=== PATIENT | male | born 1950 | race Caucasian/White ===

== ENCOUNTER 2018-07-16 17:54 | Inpatient (IN) | payer MEDICARE, SELFPAY ==
[2018-07-16 18:15] VITALS: BP 152/77; PULSE 67; RESP 16; TEMP 36.8; O2SAT 95; O2SAT 96; BMI 24.7
--- NOTE | 2018-07-16 19:35 | PCM.PN.HOSP ---
Subjective: Follow-up stroke This is a 5-year-old white male who was found with right-sided weakness and dysarthria. Taken to [facility] where he was found to have a left MCA stroke. He was found to have a PFO as well. Patient was having some right-sided weakness, right hemineglect and dysphagia. Symptoms are improving the patient still does have difficulty with expressive and receptive aphasia. He is never had a stroke before. Given that the time of onset of stroke and not be identified, patient did not receive TPA. Vitals/I&O's: Vital Signs Temp Pulse Resp BP Pulse Ox 36.8 C 67 16 152/77 H 96 07/16/18 18:15 07/16/18 18:15 07/16/18 18:15 07/16/18 18:15 07/16/18 18:15 Oxygen Delivery Method Room Air Weight: 73.8 kg Body Mass Index (BMI) 24.7 General: Alert, No apparent distress HEENT: Atraumatic, PERRLA, EOMI, Normocephalic Oral: Moist Mucosa, No Gingival or Mucosal Lesions/ Ulcerations Neck: No Nodes, Thyroid Normal Size and Texture Lungs: Clear to auscultation, Normal air movement, No rhonchi, No wheeze Cardiovascular: Regular rate, Regular Rhythm, Normal S1, Normal S2, No murmurs Abdomen: Bowel Sounds Present, Soft, Non Tender, Non-Distended, No Hepato-splenomegaly Extremities: No edema, No Calf Tenderness Skin: No rashes, No breakdown, - - Does have bruising on his right medial arm Musculoskeletal: No Tenderness to Palpation of Joints or Extremities, No Muscle Wasting Neurological: Cranial nerves II-XII grossly intact, Neuro grossly intact, Motor Exam 5/5 strength throughout - Though the patient did endorse that his right arm did feel slightly weak compared to his left but was able to hold up without drift for 10 seconds. Psych/Mental Status: Normal Affect Current Medications Acetaminophen (Tylenol) 650 mg PO Q8H PRN PRN PRN Reason: PAIN Aspirin (Aspirin, Baby) 81 mg PO DAILYCM [facility] Atorvastatin Calcium (Lipitor) 80 mg PO QHS [facility] Bisacodyl (Dulcolax) 10 mg RECTAL .PRN X 1 PRN PRN Reason: Constipation Calcium/Vitamin D (Os-Andrew 500mg + D) 1 tablet PO BIDCM [facility] Heparin Sodium (Porcine) (Heparin Na) 5,000 unit SC 0600,1800 [facility] Lisinopril (Zestril) 5 mg PO DAILY [facility] Magnesium Hydroxide (Milk Of Magnesia) 30 ml PO .PRN X 1 PRN PRN Reason: Constipation Senna/Docusate Sodium (Senokot-S, Paty-Colace) 2 tablet PO BID [facility] Assessment/Plan 1. Left MCA stroke: Been related with a PFO. Patient on aspirin and high intensity statin. Continue with physical, occupational and speech therapies. 2. Dysphagia: Status post stroke. Speech therapy. Modified diet. 3. Hypertension: Slightly high this time but would continue with lisinopril for now and make adjustments accordingly. 4. DVT prophylaxis with subcu heparin. Discussed with the patient's at bedside. Code Visit Inpatient E&M: 13806 Subs Hosp L2
--- NOTE | 2018-07-16 19:39 | PN_ITS ---
Subjective: Follow-up stroke This is a 5-year-old white male who was found with right-sided weakness and dysarthria. Taken to [facility] where he was found to have a left MCA stroke. He was found to have a PFO as well. Patient was having some right- sided weakness, right hemineglect and dysphagia. Symptoms are improving the patient still does have difficulty with expressive and receptive aphasia. He is never had a stroke before. Given that the time of onset of stroke and not be identified, patient did not receive TPA. Vitals/I&O's: Vital Signs Temp Pulse Resp BP Pulse Ox 36.8 C 67 16 152/77 H 96 07/16/18 18:15 07/16/18 18:15 07/16/18 18:15 07/16/18 18:15 07/16/18 18:15 Oxygen Delivery Method Room Air Weight: 73.8 kg Body Mass Index (BMI) 24.7 General: Alert, No apparent distress HEENT: Atraumatic, PERRLA, EOMI, Normocephalic Oral: Moist Mucosa, No Gingival or Mucosal Lesions/ Ulcerations Neck: No Nodes, Thyroid Normal Size and Texture Lungs: Clear to auscultation, Normal air movement, No rhonchi, No wheeze Cardiovascular: Regular rate, Regular Rhythm, Normal S1, Normal S2, No murmurs Abdomen: Bowel Sounds Present, Soft, Non Tender, Non-Distended, No Hepato- splenomegaly Extremities: No edema, No Calf Tenderness Skin: No rashes, No breakdown, - - Does have bruising on his right medial arm Musculoskeletal: No Tenderness to Palpation of Joints or Extremities, No Muscle Wasting Neurological: Cranial nerves II-XII grossly intact, Neuro grossly intact, Motor Exam 5/5 strength throughout - Though the patient did endorse that his right arm did feel slightly weak compared to his left but was able to hold up without drift for 10 seconds. Psych/Mental Status: Normal Affect Current Medications Acetaminophen (Tylenol) 650 mg PO Q8H PRN PRN PRN Reason: PAIN Aspirin (Aspirin, Baby) 81 mg PO DAILYCM [facility] Atorvastatin Calcium (Lipitor) 80 mg PO QHS [facility] Bisacodyl (Dulcolax) 10 mg RECTAL .PRN X 1 PRN PRN Reason: Constipation Calcium/Vitamin D (Os-Andrew 500mg + D) 1 tablet PO BIDCM [facility] Heparin Sodium (Porcine) (Heparin Na) 5,000 unit SC 0600,1800 [facility] Lisinopril (Zestril) 5 mg PO DAILY [facility] Magnesium Hydroxide (Milk Of Magnesia) 30 ml PO .PRN X 1 PRN PRN Reason: Constipation Senna/Docusate Sodium (Senokot-S, Paty-Colace) 2 tablet PO BID [facility] Assessment/Plan 1. Left MCA stroke: Been related with a PFO. Patient on aspirin and high intensity statin. Continue with physical, occupational and speech therapies. 2. Dysphagia: Status post stroke. Speech therapy. Modified diet. 3. Hypertension: Slightly high this time but would continue with lisinopril for now and make adjustments accordingly. 4. DVT prophylaxis with subcu heparin. Discussed with the patient's at bedside. Code Visit Inpatient E&M: 26977 Subs Hosp L2
[2018-07-16 21:47] VITALS: BP 148/85; PULSE 68; RESP 16; TEMP 37.4; O2SAT 95
[2018-07-16] MEDS: Acetaminophen 325 MG Tablet 650 MG PO (22:19)
[2018-07-16] MEDS: Senna/Docusate Sodium 1 Tablet 2 TABLET PO (22:19)
[2018-07-16] MEDS: Atorvastatin Calcium 80 MG Tablet PO (22:19)
[2018-07-17 05:00] VITALS: BMI 24.7
[2018-07-17] MEDS: Heparin Injection (Vial) 5,000 UNIT/ML VIAL 5000 UNIT SC ×2 (06:51→17:22)
[2018-07-17 07:02] VITALS: BP 121/71; PULSE 62; RESP 16; TEMP 36.9; O2SAT 92
[2018-07-17 07:29] VITALS: O2SAT 92
[2018-07-17 07:36] LABS: Absolute Lymphocyte Count 1.38 X10^3/ul (0.83-4.51); Absolute Neutrophil Count 4.8 X10^3/uL (2.0-7.7); Basophil# 0.03 X10^3/uL; Basophil% 0.4 % (0-1); Eosinophil# 0.36 X10^3/uL; Eosinophils% 4.9 % (0-5); Hematocrit 38.3 % (40-54); Hemoglobin 13.1 g/dl (13.0-16.5); Lymphocyte # 1.38 X10^3/ul (4.0); Lymphocyte % 18.6 % (19-41); Mean Corp Hgb Conc 34.2 g/gl (32-36); Mean Corpuscular Hgb 29.9 pg (27.0-32.0); Mean Corpuscular Volume 87.4 fL (80-94); Mean Platelet Vol. 9.8 fl (6.2-12.0); Monocyte# 0.84 X10^3/uL; Monocyte% 11.3 % (0-10); Neutrophil # 4.79 X10^3/uL (2.7-7.7); Neutrophil % 64.5 % (47-70); POSITIVE COUNT NO; POSITIVE DIFFERENTIAL NO; POSITIVE MORPHOLOGY NO; Platelet Count 212 K/mm3 (150-450); RBC Distribution Width CV 12.9 % (11.6-14.6); RBC Distribution Width SD 41.7 fl (35.1-43.9); Red Blood Count 4.38 M/mm3 (4.6-6.2); White Blood Count 7.4 K/mm3 (4.4-11.0)
[2018-07-17] MEDS: Calcium Carb/Vitamin D 1 TABLET Tablet PO ×2 (07:40→17:22)
[2018-07-17] MEDS: Senna/Docusate Sodium 1 Tablet 2 TABLET PO (07:40)
[2018-07-17] MEDS: Lisinopril 5 MG Tablet PO (07:40)
[2018-07-17] MEDS: Aspirin 81 MG TAB.CHEW PO (07:40)
[2018-07-17 07:48] LABS: ALB/GLOB Ratio 0.9 RATIO (0.9-2.4); AST(SGOT) 32 U/L (15-37); Alanine Aminotransfer ALT/SGPT 33 U/L (16-61); Albumin, Serum 3.1 g/dL (3.2-5.0); Alkaline Phosphatase 41 U/L (45-117); Anion Gap 8 (5-15); BUN 10 mg/dL (7-18); BUN/Creat Ratio 9.5 RATIO (10-20); Calcium,Total 8.7 mg/dL (8.5-10.1); Chloride 106 mmol/L (98-107); Creatinine, Serum 1.05 mg/dL (0.70-1.30); EST Glomerular Filtration Rate 74 mL/min (>60); Est Glom Filt Rate - Afr Amer 90 mL/min (>60); Estimated Creatinine Clearance 63.33 ml/min; Globulin 3.4 g/dL (2.2-4.2); Glucose 98 mg/dL (74-106); Potassium 3.6 mmol/L (3.5-5.1); Protein, Total 6.5 g/dL (6.4-8.2); Sodium Level 141 mmol/L (136-145)
--- NOTE | 2018-07-17 10:47 | HP.PCM_ITS ---
Problem List (1) Debility Status: Acute (2) Acute ischemic left MCA stroke Status: Acute (3) Aphasia Status: Acute (4) HTN (hypertension) Status: Chronic History of Present Illness Date of Admission: 07/16/18 Chief Complaint: Debility s/p aphasia and left MCA stroke The patient is a 68 year old M with PMH HTN, admitted to [facility] on 07/16/18 with debility s/p acute left MCA stroke and aphasia, for > 3 hrs therapy with a goal of returning back home at or near his prior level of functional independence. Patient transferred from [facility]. Per documentation he was admitted to [facility] with right sided weakness and speech disturbances, NIHSS was 11 on admission, MRI brain reported to show large Left MCA infarct, CTA head/neck not reported to show any hemodynamically significant stenosis or occlusion but showed old left transverse and sigmoid sinus possible thrombosis, ARLENE reported to show small PFO, Hba1c was 4.9, LDL was 116, hypercoagulable panel was reported negative, per documentation Neurosurgery was consulted given the large size of the stroke but was managed conservatively. At present patient continues to have expressive aphasia, denies any DOMINGUEZ, dizziness, visual disturbances. Per documentation patient lives with family, does not use cane or walker to ambulate, has 3 steps to go into the house, denies any falls. [] Past Medical History Past Medical History (Chronic Problems): Chronic Problems HTN (hypertension) (Chronic) Allergies No Known Allergies Allergy (Verified 07/16/18 18:24) Home Medications: Ambulatory Orders Medication Instructions Recorded Acetaminophen [Tylenol] 650 mg PO Q8 PRN 07/16/18 Aspirin 81 mg PO DAILY 07/16/18 Atorvastatin Calcium [Lipitor] 80 mg PO QHS 07/16/18 Calcium Carbonate/Vitamin D3 1 each PO BID 07/16/18 [Calcium 500 mg Chewable Tablet] Heparin Injection 5,000 units SQ 0600,1800 07/16/18 Lisinopril 5 mg PO DAILY 07/16/18 Ashby-3 Fatty Acids/Fish Oil [Fish 1 each PO DAILY 07/16/18 Oil 1,000 mg Capsule] Lives: With Family Smoking Status: Never smoker Alcohol: None Drugs: None Review of Systems Constitutional: Reports: - - complete ROS negative except as documented in HPI VTE Information - Inpt Only VTE Present on Admission: No VTE Mechan Device Prophylaxis: SCD's, Knee High LEANDRO Hose VTE Pharm Prophylaxis ordered?: Yes Patient Problems: Active and Suspected Problems Debility (Acute) Acute ischemic left MCA stroke (Acute) Aphasia (Acute) - Physical Exam General: Alert HEENT: Normocephalic Neck: Supple Lungs: Normal air movement Cardiovascular: Normal S1, Normal S2 Abdomen: Bowel Sounds Present Extremities: No cyanosis Neurological: - - consious, alert, AoAx3, Cn 2-12 grossly intact, severe expressive aphasia with mixed features, power 5/5 Left UE/LE, +4/5 Right UE/LE, cerebellar signs could not be assessed due to comprehension difficulties, no sensory loss, Reflexes + B/L B/S/T/K/A, Plantar right equivocal and left flexor, gait deferred. NIHSS 4 at present, mRS 0 at baseline Vital Signs Temp Pulse Resp BP Pulse Ox 98.4 F 62 16 121/71 H 92 07/17/18 07:02 07/17/18 07:02 07/17/18 07:02 07/17/18 07:02 07/17/18 07:29 Oxygen Delivery Method Room Air Weight: 73.8 kg Body Mass Index (BMI) 24.7 Intake and Output for Last 24 Hours 07/15/18 07/16/18 07/18/18 23:59 23:59 00:59 Output Total 200 / 200 400 / 400 Balance -200 / -200 -400 / -400 Laboratory Tests Past 24 Hrs 07/17/18 07/17/18 07:10 07:10 WBC 7.4 RBC 4.38 L Hgb 13.1 Hct 38.3 L MCV 87.4 MCH 29.9 MCHC 34.2 RDW 12.9 RDW Differential 41.7 Plt Count 212 MPV 9.8 Immature Gran % (Auto) 0.300 Neut % (Auto) 64.5 Lymph % (Auto) 18.6 L Shelby % (Auto) 11.3 H Eos % (Auto) 4.9 Baso % (Auto) 0.4 Absolute Neuts (auto) 4.8 Absolute Lymphs (auto) 1.38 Total Counted Not Reportable Sodium 141 Potassium 3.6 Chloride 106 Carbon Dioxide 27.0 Anion Gap 8 BUN 10 Creatinine 1.05 Estim Creat Clear Calc 63.33 Est GFR (MDRD) Af Amer 90 Est GFR (MDRD) Non-Af 74 BUN/Creatinine Ratio 9.5 L Glucose 98 Calcium 8.7 Total Bilirubin 0.80 AST 32 ALT 33 Alkaline Phosphatase 41 L Total Protein 6.5 Albumin 3.1 L Globulin 3.4 Albumin/Globulin Ratio 0.9 Assessment/Plan All Active Problems Debility (Acute) Acute ischemic left MCA stroke (Acute) Aphasia (Acute) The patient is a 68 year old M with PMH HTN, admitted to [facility] on 07/16/18 with debility s/p acute left MCA stroke and aphasia, for > 3 hrs therapy with a goal of returning back home at or near his prior level of functional in dependence. Patient transferred from [facility]. Per documentation he was admitted to [facility] with right sided weakness and speech disturbances, NIHSS was 11 on admission, MRI brain reported to show large Left MCA infarct, CTA head/neck not reported to show any hemodynamically significant stenosis or occlusion but showed old left transverse and sigmoid sinus possible thrombosis, ARLENE reported to show small PFO, Hba1c was 4.9, LDL was 116, hypercoagulable panel was reported negative, per documentation Neurosurgery was consulted given the large size of the stroke but was managed conservatively. At present patient continues to have expressive aphasia, denies any DOMINGUEZ, dizziness, visual disturbances. Per documentation patient lives with family, does not use cane or walker to ambulate, has 3 steps to go into the house, denies any falls. Plan -PT for gait stability -OT for ADLs -ST -Bowel protocol -Analgesics as needed -Labs reviewed -Acute left MCA stroke- on ASA and Lipitor, 30 day event recorder. -HTN- on Lisinopril -Goal BP < 130/80 mmHg -GI/DVT prophylaxis- Famotidine/Heparin sq -Fall precautions -Further medical management per hospitalist recommendation -Follow up with Neurology, and PCP after discharge Code Visit Inpatient E&M: 69741 Init Hosp L3
--- NOTE | 2018-07-17 10:47 | PCM.RU.PYE ---
Admission Information Status Changes from Prescreening?: No changes Identified Actual Problem List:: Mobility Impaired, Self Care Deficit, Ineffective Communication, BP, Hypertension Potential Problem List:: DVT, Bleeding, Infection, UTI, Aspiration, Falls, Skin Integrity, Depression Risk of Complications DVT: LMWH, LEANDRO Hose, Sequential Compression Device Bleeding: Monitor Lab Values, Nursing to Teach Precautions for anti-coagulation therapy., Wound, if applicable, to be assessed every shift., Stroke patients assessed for lethargy or change in status. Infection: Clinical Staff to Monitor for S/S of infection:, S/S of infection include fever, redness, warmth, etc. Urinary Tract Infection: Monitor for frequency, burning, discomfort, or incontinence., Nursing will obtain urine sample for urinalysis and C&S when ordered. Aspiration: Clinical staff will monitor for coughing, drooling, congestion., Speech will evaluate swallowing and dsyphasia., Nursing will monitor patient swallowing during meals. Falls: Patient will be evaluated for Fall Precautions, Patient will be placed on Fall Precautions as indicated per protocol. Skin Breakdown: Nursing will assess skin daily using assessment tool., Nursing will place on Skin Breakdown Precautions as indicated. Pain: Clinical staff will assess patient's pain level per protocol., Medications will be given, if needed, and the pain level reassessed., Other methods: Massage, distraction, decrease stimulus, etc. used PRN. Plan of Care Patient requires physician specializing in physical medicine and rehab oversight to provide close medical supervision of rehab issues including: Pain Management, Sleep Problems, Bowel and Bladder, Medical and co-morbidity Management, DVT prophylaxis, Rehabilitation Leadership, Coordination of treatment team Patient needs Physical Therapy: For a minimum of 1 hour, At least 5 out of 7 days Patient needs Physical Therapy to improve:: Mobility, Mobility, Mobility, Strengthening, Transfers, Stretching, ROM, Endurance, Stairs, Gait, Balance Patient needs Occupational Therapy: For a minimum of 1 hour, At least 5 out of 7 days Patient needs Occupational Therapy to improve ADL's incl.: Eating, Grooming, Bathing, Dressing, Toileting, Toilet transfers, Community Reintegration, Higher functioning activities, Household tasks, Adaptive Equipment, Splinting, Other activities as determined Patient requires speech therapy: For a minimum of 1 hour, At least 5 out of 7 days Patient requires speech therapy for: Swallowing, Cognition, Language Skills, Compensatory Strategies Patient requires 24/7 Rehabilitation Nursing for: Pain Issues, Identifying and preventing risk factors, Monitoring and reporting current medical conditions, Assisting with ambulation, transfer, and all ADL's, Teaching patients about disease process and medications, Family teaching, Providing safe environment, Bowel and Bladder Issues, Skin integrity, Medication Management Patient needs Forensic Investigator/ Case Management for: Discharge Planning, Arranging Home Equipment or Services, Family Interventions Patient needs Dietary and Nutrition Services for: Adequate Nutrition, Nutritional Supplements, Nutritional Education Goals Patient will remain: free from falls, or injury at time of discharge. Patient will perform bed mobility at: MOD I level of assist. Patient will complete transfers from bed to chair at: MOD I level of assist. Patient will ambulate: 100 feet, with MOD I assist, with LRD Patient will complete upper body dressing at: MOD I level of assist. Patient will complete lower body dressing at: MOD I level of assist. Patient will complete toileting at: MOD I level of assist. Patient will perform bathing at: MOD I level of assist. Patient will complete grooming at: MOD I level of assist. Patient will complete home management skills at: MOD I level of assist. Patient will achieve: 12 stairs, at MOD I assist Patient will have pain level of: of 3 or less Patient's skin will: remain intact, free from infection. Patient will receive: adequate nutrition. Discharge Planning Pt Prognosis for Sig. Practical Improv. w/in Reasonable Time: Good Estimated Length of stay (days): 16 Anticipated D/C Destination: Home with Outpt Therapy Was Preadmission Assessment Accurate?: Yes
[2018-07-17 12:19] VITALS: BMI 24.7
--- NOTE | 2018-07-17 13:36 | NURSING ---
patient ambulated multiple times x min assist >150 ft multiple times in hallway .
[2018-07-17 19:13] VITALS: BP 144/81; PULSE 79; RESP 16; TEMP 36.4; O2SAT 97
[2018-07-17] MEDS: Atorvastatin Calcium 80 MG Tablet PO (22:10)
[2018-07-18 05:00] VITALS: BMI 24.7
[2018-07-18] MEDS: Heparin Injection (Vial) 5,000 UNIT/ML VIAL 5000 UNIT SC ×2 (06:33→17:32)
[2018-07-18 09:19] VITALS: BP 134/80; PULSE 77; RESP 16; TEMP 36.7; O2SAT 97
[2018-07-18] MEDS: Calcium Carb/Vitamin D 1 TABLET Tablet PO ×2 (09:20→17:32)
[2018-07-18] MEDS: Aspirin 81 MG TAB.CHEW PO (09:20)
[2018-07-18] MEDS: Lisinopril 5 MG Tablet PO (09:20)
[2018-07-18 11:53] VITALS: BMI 24.7
[2018-07-18 11:55] VITALS: O2SAT 97
--- NOTE | 2018-07-18 16:48 | CHAPLAIN ---
Type of Pastoral Visit _x__ Initial Visit ___ Follow-up Visit ___ On-call Visit ___ General Patient Visit ___ Spiritual Assessment ___ Family Conference ___ Bereavement ___ Rapid Response ___ Code Blue ___ Other (describe below) Pastoral Care Referral From _x__ Patient ___ Family ___ Nurse ___ Physician ___ Machine Assembler Supervisor ___ Window Shade Cutter And Mounter ___ Other (describe below) Sacrament/Intervention _x__ Active listening ___ Anointing ___ Congregational ___ Bereavement ___ Communion ___ Kayleen exploration ___ ___ Life review _x__ Prayer ___ Reconciliation ___ Sacrament of Sick _x__ Supportive presence ___ Wedding ___ Other (describe below) Pastoral Comments patient had difficulty getting his words out but made gestures and used simple words to answer questions; pt presented a pleasant nature; pt indicated he has good family support and comment made him shed some tears; pt indicated he would want prayers and shook the hand of this peoplesoft administrator afterward
[2018-07-18 19:32] VITALS: BP 141/83; PULSE 74; RESP 16; TEMP 36.6; O2SAT 93
[2018-07-18] MEDS: Atorvastatin Calcium 80 MG Tablet PO (19:57)
[2018-07-18] MEDS: Famotidine 20 MG Tablet PO (19:57)
[2018-07-18 21:32] VITALS: BMI 24.7
[2018-07-19] MEDS: Heparin Injection (Vial) 5,000 UNIT/ML VIAL 5000 UNIT SC ×2 (06:53→17:03)
[2018-07-19] MEDS: Famotidine 20 MG Tablet PO ×2 (07:43→21:19)
[2018-07-19] MEDS: Calcium Carb/Vitamin D 1 TABLET Tablet PO ×2 (07:43→17:03)
[2018-07-19] MEDS: Lisinopril 5 MG Tablet PO (07:43)
[2018-07-19] MEDS: Aspirin 81 MG TAB.CHEW PO (07:43)
[2018-07-19 09:01] VITALS: BP 135/74; PULSE 65; RESP 18; TEMP 36.4; O2SAT 93
--- NOTE | 2018-07-19 15:10 | PN.NEURO_ITS ---
Patient Problems: Active and Suspected Problems Debility (Acute) Acute ischemic left MCA stroke (Acute) Aphasia (Acute) Subjective: No issues overnight. Care discussed with the nursing staff. - Physical Exam General: Alert HEENT: Atraumatic Neck: Supple Lungs: Normal air movement Cardiovascular: Normal S1, Normal S2 Abdomen: Bowel Sounds Present Extremities: No cyanosis Neurological: - - consious, alert, AoAx3, Cn 2-12 grossly intact, severe expressive aphasia with mixed features, power 5/5 Left UE/LE, +4/5 Right UE/LE, cerebellar signs could not be assessed due to comprehension difficulties, no sensory loss, Reflexes + B/L B/S/T/K/A, Plantar right equivocal and left flexor, gait deferred. NIHSS 4 at present, mRS 0 at baseline Vital Signs Temp Pulse Resp BP Pulse Ox 97.6 F L 65 18 135/74 H 93 07/19/18 09:01 07/19/18 09:01 07/19/18 09:01 07/19/18 09:01 07/19/18 09:01 Oxygen Delivery Method Room Air Weight: 73.8 kg Body Mass Index (BMI) 24.7 Intake and Output for Last 24 Hours 07/17/18 07/18/18 07/19/18 23:59 23:59 23:59 Intake Total 240 / 240 Output Total Balance 240 / 240 Medical Necessity - Tobacco Use Smoking Status: Never smoker Assessment/Plan All Active Problems Debility (Acute) Acute ischemic left MCA stroke (Acute) Aphasia (Acute) The patient is a 68 year old M with PMH HTN, admitted to [facility] on 07/16/18 with debility s/p acute left MCA stroke and aphasia, for > 3 hrs therapy with a goal of returning back home at or near his prior level of functional independence. Patient transferred from [facility]. Per documentation he was admitted to [facility] with right sided weakness and speech disturbances, NIHSS was 11 on admission, MRI brain reported to show large Left MCA infarct, CTA head/neck not reported to show any hemodynamically significant stenosis or occlusion but showed old left transverse and sigmoid sinus possible thrombosis, ARLENE reported to show small PFO, Hba1c was 4.9, LDL was 116, h ypercoagulable panel was reported negative, per documentation Neurosurgery was consulted given the large size of the stroke but was managed conservatively. At present patient continues to have expressive aphasia, denies any DOMINGUEZ, dizziness, visual disturbances. Per documentation patient lives with family, does not use cane or walker to ambulate, has 3 steps to go into the house, denies any falls. Plan -PT for gait stability -OT for ADLs -ST -Bowel protocol -Analgesics as needed -Labs reviewed -Acute left MCA stroke- on ASA and Lipitor, 30 day event recorder. -HTN- on Lisinopril -Goal BP < 130/80 mmHg -GI/DVT prophylaxis- Famotidine/Heparin sq -Fall precautions -Further medical management per hospitalist recommendation -Follow up with Neurology, and PCP after discharge
[2018-07-19 17:00] VITALS: BMI 24.7
[2018-07-19 19:20] VITALS: BP 128/76; PULSE 80; RESP 16; TEMP 36.8; O2SAT 93
[2018-07-19] MEDS: Atorvastatin Calcium 80 MG Tablet PO (21:19)
[2018-07-20 01:40] VITALS: BMI 24.7
[2018-07-20] MEDS: Heparin Injection (Vial) 5,000 UNIT/ML VIAL 5000 UNIT SC ×2 (05:47→17:02)
[2018-07-20 07:10] VITALS: BP 139/94; PULSE 64; RESP 16; TEMP 36.5; O2SAT 95
[2018-07-20] MEDS: NYSTATIN 500,000 UNIT/5 ML UDC 500000 UNIT PO ×4 (07:52→21:10)
[2018-07-20] MEDS: Famotidine 20 MG Tablet PO ×2 (07:52→21:09)
[2018-07-20] MEDS: Calcium Carb/Vitamin D 1 TABLET Tablet PO ×2 (07:52→17:03)
[2018-07-20] MEDS: Lisinopril 5 MG Tablet PO (07:52)
[2018-07-20] MEDS: Aspirin 81 MG TAB.CHEW PO (07:53)
[2018-07-20 10:59] VITALS: BMI 24.7
[2018-07-20] MEDS: Escitalopram Oxalate 10 MG Tablet PO (13:19)
[2018-07-20 19:07] VITALS: BP 123/81; PULSE 74; RESP 16; TEMP 36.9; O2SAT 93
[2018-07-20] MEDS: Atorvastatin Calcium 80 MG Tablet PO (21:10)
[2018-07-20 21:38] VITALS: BMI 24.7
[2018-07-21] MEDS: Heparin Injection (Vial) 5,000 UNIT/ML VIAL 5000 UNIT SC ×2 (05:49→17:35)
[2018-07-21 08:12] VITALS: BP 133/75; PULSE 63; RESP 16; TEMP 36.7; O2SAT 94
[2018-07-21] MEDS: Aspirin 81 MG TAB.CHEW PO (10:37)
[2018-07-21] MEDS: Famotidine 20 MG Tablet PO ×2 (10:37→20:44)
[2018-07-21] MEDS: NYSTATIN 500,000 UNIT/5 ML UDC 500000 UNIT PO ×4 (10:37→20:44)
[2018-07-21] MEDS: Escitalopram Oxalate 10 MG Tablet PO (10:37)
[2018-07-21] MEDS: Calcium Carb/Vitamin D 1 TABLET Tablet PO ×2 (10:37→17:35)
[2018-07-21] MEDS: Lisinopril 5 MG Tablet PO (10:37)
--- NOTE | 2018-07-21 10:56 | PCM.PN.NEU ---
Patient Problems: Active and Suspected Problems Debility (Acute) Acute ischemic left MCA stroke (Acute) Aphasia (Acute) Subjective: No issues overnight. Care discussed with the nursing staff. Staffed in the team meeting today. all questions were answered. Further therapy details per PT OT and speech therapy notes. - Physical Exam General: Alert HEENT: Normocephalic Neck: Supple Lungs: Normal air movement Cardiovascular: Normal S1, Normal S2 Abdomen: Bowel Sounds Present Extremities: No cyanosis Neurological: - - consious, alert, AoAx3, Cn 2-12 grossly intact, severe expressive aphasia with mixed features, power 5/5 Left UE/LE, +4/5 Right UE/LE, cerebellar signs could not be assessed due to comprehension difficulties, no sensory loss, Reflexes + B/L B/S/T/K/A, Plantar right equivocal and left flexor, gait deferred. NIHSS 4 at present, mRS 0 at baseline Psych/Mental Status: Normal Affect Vital Signs Temp Pulse Resp BP Pulse Ox 98.0 F 63 16 133/75 H 94 07/21/18 08:12 07/21/18 08:12 07/21/18 08:12 07/21/18 08:12 07/21/18 08:12 Oxygen Delivery Method Room Air Weight: 70.5 kg Body Mass Index (BMI) 24.7 Intake and Output for Last 24 Hours 07/19/18 07/20/18 07/21/18 23:59 23:59 23:59 Intake Total 240 / 240 240 / 240 Balance 240 / 240 240 / 240 Medical Necessity - Tobacco Use Smoking Status: Never smoker Assessment/Plan All Active Problems Debility (Acute) Acute ischemic left MCA stroke (Acute) Aphasia (Acute) The patient is a 68 year old M with PMH HTN, admitted to [facility] on 07/16/18 with debility s/p acute left MCA stroke and aphasia, for > 3 hrs therapy with a goal of returning back home at or near his prior level of functional independence. Patient transferred from [facility]. Per documentation he was admitted to [facility] with right sided weakness and speech disturbances, NIHSS was 11 on admission, MRI brain reported to show large Left MCA infarct, CTA head/neck not reported to show any hemodynamically significant stenosis or occlusion but showed old left transverse and sigmoid sinus possible thrombosis, ARLENE reported to show small PFO, Hba1c was 4.9, LDL was 116, hypercoagulable panel was reported negative, per documentation Neurosurgery was consulted given the large size of the stroke but was managed conservatively. At present patient continues to have expressive aphasia, denies any DOMINGUEZ, dizziness, visual disturbances. Per documentation patient lives with family, does not use cane or walker to ambulate, has 3 steps to go into the house, denies any falls. Plan -PT for gait stability -OT for ADLs -ST -Bowel protocol -Analgesics as needed -Labs reviewed -Acute left MCA stroke- on ASA and Lipitor, 30 day event recorder. -HTN- on Lisinopril -Goal BP < 130/80 mmHg -GI/DVT prophylaxis- Famotidine/Heparin sq -Fall precautions -Further medical management per hospitalist recommendation -Follow up with Neurology, and PCP after discharge
--- NOTE | 2018-07-21 12:00 | CASEMGMT ---
Team meeting held. Patient present as well as patient family. Collaborating with team. Patient to discharge on 07/29/18 to home with spouse. Speech therapy recommending for patient to continue with services through outpatient services. Patient spouse reporting concerns with being able to pay medical bills. This social work assistant encouraging patient spouse to complete a medicaid application. Patient spouse plans to complete medicaid application for patient. Patient spouse educated and aware of medicaid process. Support given. Proposed discharge date: 07/29/18 PLAN: Discharge to home with spouse and outpatient speech therapy. Bernard BENJAMIN, [place]
[2018-07-21 17:00] VITALS: BMI 24.7
[2018-07-21 20:42] VITALS: BP 142/79; PULSE 68; RESP 16; TEMP 36.4; O2SAT 95
[2018-07-21] MEDS: Atorvastatin Calcium 80 MG Tablet PO (20:43)
[2018-07-22] MEDS: Heparin Injection (Vial) 5,000 UNIT/ML VIAL 5000 UNIT SC ×2 (06:53→18:11)
[2018-07-22 08:13] VITALS: BP 119/78; PULSE 63; RESP 16; TEMP 36.4; O2SAT 95
[2018-07-22] MEDS: Calcium Carb/Vitamin D 1 TABLET Tablet PO ×2 (08:31→18:09)
[2018-07-22] MEDS: Aspirin 81 MG TAB.CHEW PO (08:31)
[2018-07-22] MEDS: NYSTATIN 500,000 UNIT/5 ML UDC 500000 UNIT PO (08:31)
[2018-07-22] MEDS: Famotidine 20 MG Tablet PO ×2 (08:31→21:43)
[2018-07-22] MEDS: Escitalopram Oxalate 10 MG Tablet PO (08:31)
[2018-07-22] MEDS: Lisinopril 5 MG Tablet PO (08:31)
--- NOTE | 2018-07-22 11:23 | PCM.PN.NEU ---
Patient Problems: Active and Suspected Problems Debility (Acute) Acute ischemic left MCA stroke (Acute) Aphasia (Acute) Subjective: No issues overnight. Care discussed with the nursing staff. - Physical Exam General: Alert HEENT: Normocephalic Neck: Supple Lungs: Normal air movement Cardiovascular: Normal S1, Normal S2 Abdomen: Bowel Sounds Present Extremities: No cyanosis Neurological: - - consious, alert, AoAx3, Cn 2-12 grossly intact, severe expressive aphasia with mixed features, power 5/5 Left UE/LE, +4/5 Right UE/LE, cerebellar signs could not be assessed due to comprehension difficulties, no sensory loss, Reflexes + B/L B/S/T/K/A, Plantar right equivocal and left flexor, gait deferred. NIHSS 4 at present, mRS 0 at baseline Psych/Mental Status: Normal Affect Vital Signs Temp Pulse Resp BP Pulse Ox 97.6 F L 63 16 119/78 95 07/22/18 08:13 07/22/18 08:13 07/22/18 08:13 07/22/18 08:13 07/22/18 08:13 Oxygen Delivery Method Room Air Weight: 70.5 kg Body Mass Index (BMI) 24.7 Intake and Output for Last 24 Hours 07/20/18 07/21/18 07/22/18 23:59 23:59 23:59 Intake Total 480 / 480 360 / 360 Balance 480 / 480 360 / 360 Medical Necessity - Tobacco Use Smoking Status: Never smoker Assessment/Plan All Active Problems Debility (Acute) Acute ischemic left MCA stroke (Acute) Aphasia (Acute) The patient is a 68 year old M with PMH HTN, admitted to [facility] on 07/16/18 with debility s/p acute left MCA stroke and aphasia, for > 3 hrs therapy with a goal of returning back home at or near his prior level of functional independence. Patient transferred from [facility]. 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 At present patient continues to have expressive aphasia, denies any DOMINGUEZ, dizziness, visual disturbances. Per documentation patient lives with family, does not use cane or walker to ambulate, has 3 steps to go into the house, denies any falls. Plan -PT for gait stability -OT for ADLs -ST -Bowel protocol -Analgesics as needed -Labs reviewed -Acute left MCA stroke- on ASA and Lipitor, on 30 day event recorder. -HTN- on Lisinopril -Goal BP < 130/80 mmHg -GI/DVT prophylaxis- Famotidine/Heparin sq -Fall precautions -Further medical management per hospitalist recommendation -Follow up with Neurology, and PCP after discharge
[2018-07-22 17:00] VITALS: BMI 24.7
[2018-07-22 20:23] VITALS: BP 120/71; PULSE 72; RESP 16; TEMP 36.6; O2SAT 99
[2018-07-22] MEDS: Atorvastatin Calcium 80 MG Tablet PO (21:43)
[2018-07-22 23:16] VITALS: BMI 24.7
[2018-07-23] MEDS: Heparin Injection (Vial) 5,000 UNIT/ML VIAL 5000 UNIT SC ×2 (05:57→17:08)
--- NOTE | 2018-07-23 07:24 | NURSING ---
Electrodes changed this am for heart moniter
[2018-07-23 07:49] VITALS: BP 148/87; PULSE 62; RESP 18; TEMP 36.6; O2SAT 93
[2018-07-23] MEDS: Lisinopril 5 MG Tablet PO (07:52)
[2018-07-23] MEDS: Calcium Carb/Vitamin D 1 TABLET Tablet PO ×2 (07:52→17:07)
[2018-07-23] MEDS: Aspirin 81 MG TAB.CHEW PO (07:52)
[2018-07-23] MEDS: Escitalopram Oxalate 10 MG Tablet PO (07:52)
[2018-07-23] MEDS: Famotidine 20 MG Tablet PO ×2 (07:52→20:14)
[2018-07-23 16:28] VITALS: BMI 24.7
[2018-07-23 20:09] VITALS: BP 127/75; PULSE 70; RESP 16; TEMP 37.2; O2SAT 93
[2018-07-23] MEDS: Atorvastatin Calcium 80 MG Tablet PO (20:14)
[2018-07-23 22:14] VITALS: BMI 24.7
--- NOTE | 2018-07-24 05:53 | NURSING ---
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 HR 59 BP 119/79. Skin warm, dry. 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 No change in neuro assessment from last night. Pt now in bed, nods yes feels better. Will continue to monitor
[2018-07-24] MEDS: Heparin Injection (Vial) 5,000 UNIT/ML VIAL 5000 UNIT SC ×2 (06:05→17:28)
[2018-07-24 07:36] VITALS: BP 119/76; PULSE 63; RESP 18; TEMP 36.6; O2SAT 93
[2018-07-24] MEDS: Aspirin 81 MG TAB.CHEW PO (08:43)
[2018-07-24] MEDS: Escitalopram Oxalate 10 MG Tablet PO (08:43)
[2018-07-24] MEDS: Lisinopril 5 MG Tablet PO (08:43)
[2018-07-24] MEDS: Senna/Docusate Sodium 1 Tablet 2 TABLET PO (08:43)
[2018-07-24] MEDS: Calcium Carb/Vitamin D 1 TABLET Tablet PO ×2 (08:43→17:28)
[2018-07-24] MEDS: Famotidine 20 MG Tablet PO ×2 (08:44→21:11)
[2018-07-24] MEDS: Bisacodyl 10 MG Suppository RECTAL (11:34)
--- NOTE | 2018-07-24 13:15 | NURSING ---
Per. Dr. Garcia this RN is to call hospitalist to come see pt. d/t no hospitalist had seen pt in over a week. This RN explained to Dr. Garcia that the hospitalist are not called unless pt is having acute issues, Dr. Garcia told this RN that it is in their (hospitalist) contact to see the pt 3 times per week. This RN called Dr. Saldaña explained to her there are no acute issues going on with the pt, however, Dr. Garcia wants her to come see the pt. today. Dr. Saldaña aware of situation.
[2018-07-24 13:39] VITALS: BMI 24.7
[2018-07-24 15:22] VITALS: BMI 24.7
[2018-07-24 20:30] VITALS: BP 129/74; PULSE 66; RESP 16; TEMP 36.5; O2SAT 94; BMI 24.7
[2018-07-24] MEDS: Atorvastatin Calcium 80 MG Tablet PO (21:11)
[2018-07-25] MEDS: Heparin Injection (Vial) 5,000 UNIT/ML VIAL 5000 UNIT SC ×2 (06:06→18:01)
[2018-07-25 10:00] VITALS: BP 129/81; PULSE 68; RESP 16; TEMP 36.9; O2SAT 97
[2018-07-25] MEDS: Calcium Carb/Vitamin D 1 TABLET Tablet PO ×2 (10:28→18:01)
[2018-07-25] MEDS: Escitalopram Oxalate 10 MG Tablet PO (10:28)
[2018-07-25] MEDS: Lisinopril 5 MG Tablet PO (10:28)
[2018-07-25] MEDS: Famotidine 20 MG Tablet PO ×2 (10:28→21:51)
[2018-07-25] MEDS: Aspirin 81 MG TAB.CHEW PO (10:28)
--- NOTE | 2018-07-25 15:15 | PN.NEURO_ITS ---
Patient Problems: Active and Suspected Problems Debility (Acute) Acute ischemic left MCA stroke (Acute) Aphasia (Acute) Subjective: No complaints. Tolerating therapies. No GI or complaints. - Physical Exam General: Alert, Cooperative, No apparent distress Neurological: Cranial nerves II-XII grossly intact, - - Severe aphasia both expressive and receptive components Psych/Mental Status: Normal Affect, Alert and oriented to time, place, person, mood and affect Vital Signs Temp Pulse Resp BP Pulse Ox 36.9 C 68 16 129/81 H 97 07/25/18 10:00 07/25/18 10:00 07/25/18 10:00 07/25/18 10:00 07/25/18 10:00 Oxygen Delivery Method Room Air Weight: 70.5 kg Body Mass Index (BMI) 24.7 Intake and Output for Last 24 Hours 07/23/18 07/24/18 07/25/18 23:59 23:59 23:59 Intake Total 640 / 640 Balance 640 / 640 Current Medications Generic Name Dose Route Start Last Admin Trade Name Freq PRN Reason Stop Dose Admin Acetaminophen 650 mg 07/16/18 18:24 07/16/18 22:19 Tylenol PO 650 mg Q8H PRN PRN Administration PAIN Aspirin 81 mg 07/17/18 08:00 07/25/18 10:28 Aspirin, Baby PO 81 mg DAILYCM [facility] Administration Atorvastatin Calcium 80 mg 07/16/18 22:00 07/24/18 21:11 Lipitor PO 80 mg QHS ISIDORO Administration Bisacodyl 10 mg 07/16/18 18:26 07/24/18 11:34 Dulcolax RECTAL 10 mg .PRN X 1 PRN Administration Constipation Calcium/Vitamin D 1 tablet 07/17/18 08:00 07/25/18 10:28 Os-Andrew 500mg + D PO 1 tablet BIDCM ISIDORO Administration Escitalopram Oxalate 10 mg 07/20/18 12:49 07/25/18 10:28 Lexapro PO 10 mg DAILY ISIDORO Administration Famotidine 20 mg 07/18/18 22:00 07/25/18 10:28 Pepcid PO 20 mg BID ISIDORO Administration Heparin Sodium (Porcine) 5,000 unit 07/17/18 06:00 07/25/18 06:06 Heparin Na SC 5,000 unit 0600,1800 ISIDORO Administration Lisinopril 5 mg 07/17/18 10:00 07/25/18 10:28 Zestril PO 5 mg DAILY ISIDORO Administration Magnesium Hydroxide 30 ml 07/16/18 18:26 Milk Of Magnesia PO .PRN X 1 PRN Constipation Nutritional Formula (Lactose Free) 120 ml 07/17/18 14:00 07/25/18 10:29 Ensure Enlive PO 120 ml 4X/DAY ISIDORO Administration Senna/Docusate Sodium 2 tablet 07/18/18 14:46 07/24/18 08:43 Senokot-S, Paty-Colace PO 2 tablet BID PRN Administration Constipation Medical Necessity - Tobacco Use Smoking Status: Never smoker Assessment/Plan All Active Problems Debility (Acute) Acute ischemic left MCA stroke (Acute) Aphasia (Acute) The patient is a 68 year old M with PMH HTN, admitted to [facility] on 07/16/18 with debility s/p acute left MCA stroke and aphasia, for > 3 hrs therapy with a goal of returning back home at or near his prior level of functional independence. Patient transferred from [facility]. Per documentation he was admitted to [facility] with right sided weakness and speech disturbances, NIHSS was 11 on admission, MRI brain reported to show large Left MCA infarct, CTA head/neck not reported to show any hemodynamically significant stenosis or occlusion but showed old left transverse and sigmoid sinus possible thrombosis, ARLENE reported to show small PFO, Hba1c was 4.9, LDL was 116, hypercoagulable panel was reported negative, per documentation Neurosurgery was consulted given the large size of the stroke but was managed conservatively. At present patient continues to have expressive aphasia, denies any DOMINGUEZ, dizziness, visual disturbances. Per documentation patient lives with family, does not use cane or walker to ambulate, has 3 steps to go into the house, denies any falls. Plan -PT for gait stability -OT for ADLs -ST -Bowel protocol -Analgesics as needed -Labs reviewed -Acute left MCA stroke- on ASA and Lipitor, on 30 day event recorder. -HTN- on Lisinopril -Goal BP < 130/80 mmHg -GI/DVT prophylaxis- Famotidine/Heparin sq -Fall precautions -Further medical management per hospitalist recommendation -Follow up with Neurology, and PCP after discharge Plan discharge 07/29
[2018-07-25 16:43] VITALS: BMI 24.7
[2018-07-25 19:18] VITALS: BP 155/85; PULSE 84; RESP 16; TEMP 36.9; O2SAT 93
[2018-07-25 21:50] VITALS: PULSE 84; RESP 16; O2SAT 93; BMI 24.7
[2018-07-25] MEDS: Atorvastatin Calcium 80 MG Tablet PO (21:51)
--- NOTE | 2018-07-26 02:45 | NURSING ---
Reviewed and agree with DESIGN TRANSFERRER documentation and FIMs charting.
[2018-07-26] MEDS: Heparin Injection (Vial) 5,000 UNIT/ML VIAL 5000 UNIT SC ×2 (05:47→17:07)
[2018-07-26 10:00] VITALS: BP 142/79; PULSE 70; RESP 16; TEMP 36.5; O2SAT 94
[2018-07-26] MEDS: Famotidine 20 MG Tablet PO ×2 (10:03→21:14)
[2018-07-26] MEDS: Lisinopril 5 MG Tablet PO (10:03)
[2018-07-26] MEDS: Escitalopram Oxalate 10 MG Tablet PO (10:03)
[2018-07-26] MEDS: Calcium Carb/Vitamin D 1 TABLET Tablet PO ×2 (10:03→17:07)
[2018-07-26] MEDS: Aspirin 81 MG TAB.CHEW PO (10:03)
[2018-07-26 15:29] VITALS: BMI 24.7
--- NOTE | 2018-07-26 16:48 | PN_ITS ---
Patient Problems: Active and Suspected Problems Debility (Acute) Acute ischemic left MCA stroke (Acute) Aphasia (Acute) Subjective: Follow up CVA. Still unable to speak, but able to follow commands. Vitals/I&O's: Vital Signs Temp Pulse Resp BP Pulse Ox 36.5 C L 70 16 142/79 H 94 07/26/18 10:00 07/26/18 10:00 07/26/18 10:00 07/26/18 10:00 07/26/18 10:00 Oxygen Delivery Method Room Air Weight: 70.5 kg Body Mass Index (BMI) 24.7 Intake and Output for Last 24 Hours 07/24/18 07/25/18 07/26/18 23:59 23:59 23:59 Intake Total 1120 / 1120 240 / 240 Balance 1120 / 1120 240 / 240 General: Alert, No apparent distress HEENT: Atraumatic, Normocephalic Oral: Moist Mucosa, No Gingival or Mucosal Lesions/ Ulcerations Neck: No Nodes, Thyroid Normal Size and Texture Lungs: Clear to auscultation, Normal air movement, No rhonchi, No wheeze Cardiovascular: Regular rate, Regular Rhythm, Normal S1, Normal S2, No murmurs Abdomen: Bowel Sounds Present, Soft, Non Tender, Non-Distended, No Hepato- splenomegaly Extremities: No edema, No Calf Tenderness Skin: No rashes, No breakdown Current Medications Acetaminophen (Tylenol) 650 mg PO Q8H PRN PRN PRN Reason: PAIN Last Admin: 07/16/18 22:19 Dose: 650 mg Aspirin (Aspirin, Baby) [facility] Last Admin: 07/26/18 10:03 Dose: 81 mg Atorvastatin Calcium (Lipitor) 80 mg PO QHS [facility] Last Admin: 07/25/18 21:51 Dose: 80 mg Bisacodyl (Dulcolax) 10 mg RECTAL .PRN X 1 PRN PRN Reason: Constipation Last Admin: 07/24/18 11:34 Dose: 10 mg Calcium/Vitamin D (Os-Andrew 500mg + D) [facility] Last Admin: 07/26/18 10:03 Dose: 1 tablet Escitalopram Oxalate (Lexapro) 10 mg PO DAILY [facility] Last Admin: 07/26/18 10:03 Dose: 10 mg Famotidine (Pepcid) 20 mg PO BID [facility] Last Admin: 07/26/18 10:03 Dose: 20 mg Heparin Sodium (Porcine) (Heparin Na) 5,000 unit SC 0600,1800 [facility] Last Admin: 07/26/18 05:47 Dose: 5,000 unit Lisinopril (Zestril) 5 mg PO DAILY [facility] Last Admin: 07/26/18 10:03 Dose: 5 mg Magnesium Hydroxide (Milk Of Magnesia) 30 ml PO .PRN X 1 PRN PRN Reason: Constipation Nutritional Formula (Lactose Free) (Ensure Enlive) 120 ml PO 4X/DAY [facility] Last Admin: 07/26/18 13:33 Dose: 120 ml Senna/Docusate Sodium (Senokot-S, Paty-Colace) 2 tablet PO BID PRN PRN Reason: Constipation Last Admin: 07/24/18 08:43 Dose: 2 tablet Medical Necessity - Tobacco Use Smoking Status: Never smoker Assessment/Plan All Active Problems Debility (Acute) Acute ischemic left MCA stroke (Acute) Aphasia (Acute) 1. Left MCA stroke: Been related with a PFO. Patient on aspirin and high intensity statin. Continue with physical, occupational and speech therapies. 2. Dysphagia: Status post stroke. Speech therapy. Modified diet. 3. Hypertension: Slightly high this time but would continue with lisinopril for now and make adjustments accordingly. 4. DVT prophylaxis with subcu heparin. Code Visit Inpatient E&M: 43543 Subs Hosp L2
[2018-07-26] MEDS: Senna/Docusate Sodium 1 Tablet 2 TABLET PO (17:07)
[2018-07-26 18:56] VITALS: BP 141/84; PULSE 65; RESP 16; TEMP 36.6; O2SAT 91
[2018-07-26 21:10] VITALS: PULSE 65; BMI 24.7
[2018-07-26] MEDS: Atorvastatin Calcium 80 MG Tablet PO (21:14)
[2018-07-27] MEDS: Heparin Injection (Vial) 5,000 UNIT/ML VIAL 5000 UNIT SC ×2 (05:26→17:17)
[2018-07-27 07:31] VITALS: BP 153/87; PULSE 65; RESP 18; TEMP 36.6; O2SAT 96
[2018-07-27] MEDS: Escitalopram Oxalate 10 MG Tablet PO (07:32)
[2018-07-27] MEDS: Lisinopril 5 MG Tablet PO (07:32)
[2018-07-27] MEDS: Aspirin 81 MG TAB.CHEW PO (07:32)
[2018-07-27] MEDS: Calcium Carb/Vitamin D 1 TABLET Tablet PO ×2 (07:32→17:17)
[2018-07-27] MEDS: Famotidine 20 MG Tablet PO ×2 (07:32→19:21)
[2018-07-27 10:06] VITALS: BMI 24.7
[2018-07-27 19:06] VITALS: BP 140/76; PULSE 80; RESP 18; TEMP 36.8; O2SAT 94
[2018-07-27] MEDS: Atorvastatin Calcium 80 MG Tablet PO (19:21)
[2018-07-27] MEDS: Bisacodyl 10 MG Suppository RECTAL (19:21)
[2018-07-27] MEDS: Senna/Docusate Sodium 1 Tablet 2 TABLET PO (19:24)
[2018-07-27 19:38] VITALS: BMI 24.7
[2018-07-28] MEDS: Heparin Injection (Vial) 5,000 UNIT/ML VIAL 5000 UNIT SC ×2 (06:03→17:28)
[2018-07-28 07:07] VITALS: BP 147/92; PULSE 75; RESP 16; TEMP 36.7; O2SAT 95
[2018-07-28] MEDS: Famotidine 20 MG Tablet PO ×2 (07:46→22:59)
[2018-07-28] MEDS: Calcium Carb/Vitamin D 1 TABLET Tablet PO ×2 (07:46→17:27)
[2018-07-28] MEDS: Escitalopram Oxalate 10 MG Tablet PO (07:46)
[2018-07-28] MEDS: Lisinopril 5 MG Tablet PO (07:46)
[2018-07-28] MEDS: Senna/Docusate Sodium 1 Tablet 2 TABLET PO (07:46)
[2018-07-28] MEDS: Aspirin 81 MG TAB.CHEW PO (07:46)
--- NOTE | 2018-07-28 12:35 | PCM.PN.NEU ---
Patient Problems: Active and Suspected Problems Debility (Acute) Acute ischemic left MCA stroke (Acute) Aphasia (Acute) Subjective: No new complaints. Staffed in team meeting today. His was not present. He is doing well from a physical therapy and occupational therapy standpoint, speech therapy remains his major requirement. Speech therapy notes he is able to express his intentions via alternative communication measures and is tolerating a regular diet. Plan for discharge home tomorrow. No issues from nursing standpoint. - Physical Exam General: Alert, Oriented x3, Cooperative, No apparent distress Neurological: Cranial nerves II-XII grossly intact, - - Essentially mute Psych/Mental Status: Normal Affect Vital Signs Temp Pulse Resp BP Pulse Ox 36.7 C 75 16 147/92 H 95 07/28/18 07:07 07/28/18 07:07 07/28/18 07:07 07/28/18 07:07 07/28/18 07:07 Oxygen Delivery Method Room Air Weight: 69.2 kg Body Mass Index (BMI) 24.7 Intake and Output for Last 24 Hours 07/26/18 07/27/18 07/28/18 23:59 23:59 23:59 Intake Total 680 / 680 480 / 480 Balance 680 / 680 480 / 480 Medical Necessity - Tobacco Use Smoking Status: Never smoker Assessment/Plan All Active Problems Debility (Acute) Acute ischemic left MCA stroke (Acute) Aphasia (Acute) The patient is a 68 year old M with PMH HTN, admitted to [facility] on 07/16/18 with debility s/p acute left MCA stroke and aphasia, for > 3 hrs therapy with a goal of returning back home at or near his prior level of functional independence. Patient transferred from [facility]. Per documentation he was admitted to [facility] with right sided weakness and speech disturbances, NIHSS was 11 on admission, MRI brain reported to show large Left MCA infarct, CTA head/neck not reported to show any hemodynamically significant stenosis or occlusion but showed old left transverse and sigmoid sinus possible thrombosis, ARLENE reported to show small PFO, Hba1c was 4.9, LDL was 116, hypercoagulable panel was reported negative, per documentation Neurosurgery was consulted given the large size of the stroke but was managed conservatively. At present patient continues to have expressive aphasia, denies any DOMINGUEZ, dizziness, visual disturbances. Per documentation patient lives with family, does not use cane or walker to ambulate, has 3 steps to go into the house, denies any falls. Plan -PT for gait stability -OT for ADLs -ST -Bowel protocol -Analgesics as needed -Labs reviewed -Acute left MCA stroke- on ASA and Lipitor, on 30 day event recorder. -HTN- on Lisinopril -Goal BP < 130/80 mmHg -GI/DVT prophylaxis- Famotidine/Heparin sq -Fall precautions -Further medical management per hospitalist recommendation -Follow up with Neurology, and PCP after discharge Plan discharge 07/29
--- NOTE | 2018-07-28 12:50 | PCM.DC ---
- Discharge Diagnoses Current Active Problems: Current Active and Chronic Problems Debility (Acute) Acute ischemic left MCA stroke (Acute) Aphasia (Acute) HTN (hypertension) (Chronic) Reason(s) for Visit for Discharge Instructions: Debility due to stroke You will use the following diet at home:: No restrictions, Regular Your food should be the consistency of: Regular Your liquids should be the consistency of: Regular/Thin Discharge Activity: Return to Normal Activity, May Not Drive Weight Bearing Status: Weight bearing as tolerated Lifting Restrictions: 10 pounds Allergies/Adverse Reactions: Allergies No Known Allergies Allergy (Verified 07/16/18 18:24) Medications to take at Discharge Acetaminophen [Tylenol] 650 mg PO Q8 PRN 07/16/18 Aspirin 81 mg PO DAILY 07/16/18 Calcium Carbonate/Vitamin D3 [Calcium 500 mg Chewable Tablet] 1 each PO BID 07/16/18 [place]-3 Fatty Acids/Fish Oil [Fish Oil 1,000 mg Capsule] 1 each PO DAILY 07/16/18 Atorvastatin Calcium [Lipitor] 80 mg PO QHS #30 tab 07/28/18 Bisacodyl [Dulcolax] 10 mg RECTAL .PRN X 1 PRN suppos. 07/28/18 Ensure Enlive 120 ml PO 4X/DAY liquid 07/28/18 Escitalopram Oxalate [Lexapro] 10 mg PO DAILY #30 tab 07/28/18 Famotidine [Pepcid] 20 mg PO BID #60 tab 07/28/18 Lisinopril 5 mg PO DAILY #30 tab 07/28/18 Senna/Docusate Sodium [Senokot-S] 2 tablet PO DAILY tablet 07/28/18 The following prescriptions were given: Atorvastatin Calcium [Lipitor] 80 mg PO QHS #30 tab Escitalopram Oxalate [Lexapro] 10 mg PO DAILY #30 tab Lisinopril 5 mg PO DAILY #30 tab Famotidine [Pepcid] 20 mg PO BID #60 tab Primary Care Physician: Michelle Upton NP-C [Primary Care Provider] - Test Results: Test results from this visit will be discussed in further detail at your follow-up appointment, if applicable. Please Follow Up With: Anali neurology When: Call for an appointment Proposed Discharge Date: 07/29/18
--- NOTE | 2018-07-28 12:52 | PCM.RU.DC ---
Rehab Discharge Summary DATE OF ADMISSION: 07/16/18 DATE OF DISCHARGE: 07/29/18 - Rehab Diagnosis The status post left MCA distribution infarct Patient Problems: Active and Suspected Problems Debility (Acute) Acute ischemic left MCA stroke (Acute) Aphasia (Acute) - Physical Exam General: Alert, Oriented x3, Cooperative, No apparent distress HEENT: Atraumatic, PERRLA, EOMI, Normocephalic Lungs: Clear to auscultation Cardiovascular: Regular rate Abdomen: Bowel Sounds Present Extremities: No clubbing, No Calf Tenderness Skin: No rashes Musculoskeletal: No Tenderness to Palpation of Joints or Extremities Neurological: Cranial nerves II-XII grossly intact, - - Expressive a aphasia to a lesser extent mild receptive a aphasia Psych/Mental Status: Normal Affect Vital Signs Temp Pulse Resp BP Pulse Ox 36.7 C 75 16 147/92 H 95 07/28/18 07:07 07/28/18 07:07 07/28/18 07:07 07/28/18 07:07 07/28/18 07:07 Oxygen Delivery Method Room Air Weight: 69.2 kg Body Mass Index (BMI) 24.7 Intake and Output for Last 24 Hours 07/26/18 07/27/18 07/28/18 23:59 23:59 23:59 Intake Total 680 / 680 480 / 480 Balance 680 / 680 480 / 480 Discharge Diet: No Restrictions Discharge Activity: Return to Normal Activity, May Not Drive Weight Bearing Status: Weight bearing as tolerated Lifting Restrict to (lbs):: 10 Home Medications: Medications to take at Discharge Acetaminophen [Tylenol] 650 mg PO Q8 PRN 07/16/18 Aspirin 81 mg PO DAILY 07/16/18 Calcium Carbonate/Vitamin D3 [Calcium 500 mg Chewable Tablet] 1 each PO BID 07/16/18 [place]-3 Fatty Acids/Fish Oil [Fish Oil 1,000 mg Capsule] 1 each PO DAILY 07/16/18 Atorvastatin Calcium [Lipitor] 80 mg PO QHS #30 tab 07/28/18 Bisacodyl [Dulcolax] 10 mg RECTAL .PRN X 1 PRN suppos. 07/28/18 Ensure Enlive 120 ml PO 4X/DAY liquid 07/28/18 Escitalopram Oxalate [Lexapro] 10 mg PO DAILY #30 tab 07/28/18 Famotidine [Pepcid] 20 mg PO BID #60 tab 07/28/18 Lisinopril 5 mg PO DAILY #30 tab 07/28/18 Senna/Docusate Sodium [Senokot-S] 2 tablet PO DAILY tablet 07/28/18 Following Prescrptions Were Given to Patient: Atorvastatin Calcium [Lipitor] 80 mg PO QHS #30 tab Escitalopram Oxalate [Lexapro] 10 mg PO DAILY #30 tab Lisinopril 5 mg PO DAILY #30 tab Famotidine [Pepcid] 20 mg PO BID #60 tab Primary Care Physician: Michelle Upton NP-C [Primary Care Provider] - Please Follow Up With: Anali neurology When: Call for an appointment Disposition: Home Minutes spent on discharge:: 40 Patient Condition:: Good Rehab Course The patient is a 68 year old M with PMH HTN, admitted to [facility] on 07/16/18 with debility s/p acute left MCA stroke and aphasia, for > 3 hrs therapy with a goal of returning back home at or near his prior level of functional independence. Patient transferred from [facility]. Per documentation he was admitted to [facility] with right sided weakness and speech disturbances, NIHSS was 11 on admission, MRI brain reported to show large Left MCA infarct, CTA head/neck not reported to show any hemodynamically significant stenosis or occlusion but showed old left transverse and sigmoid sinus possible thrombosis, ARLENE reported to show small PFO, Hba1c was 4.9, LDL was 116, hypercoagulable panel was reported negative, per documentation Neurosurgery was consulted given the large size of the stroke but was managed conservatively. At present patient continues to have expressive aphasia, denies any DOMINGUEZ, dizziness, visual disturbances. Per documentation patient lives with family, does not use cane or walker to ambulate, has 3 steps to go into the house, denies any falls. In the rehab unit his hospital course was uneventful. He improved from all measures, and was deemed appropriate for discharge to home with outpatient follow-up. Meaningful Use Info Meaningful Use Diagnoses (Choose all that apply): None applicable
--- NOTE | 2018-07-28 12:55 | DS.PCM_ITS ---
Rehab Discharge Summary DATE OF ADMISSION: 07/16/18 DATE OF DISCHARGE: 07/29/18 - Rehab Diagnosis The status post left MCA distribution infarct Patient Problems: Active and Suspected Problems Debility (Acute) Acute ischemic left MCA stroke (Acute) Aphasia (Acute) - Physical Exam General: Alert, Oriented x3, Cooperative, No apparent distress HEENT: Atraumatic, PERRLA, EOMI, Normocephalic Lungs: Clear to auscultation Cardiovascular: Regular rate Abdomen: Bowel Sounds Present Extremities: No clubbing, No Calf Tenderness Skin: No rashes Musculoskeletal: No Tenderness to Palpation of Joints or Extremities Neurological: Cranial nerves II-XII grossly intact, - - Expressive a aphasia to a lesser extent mild receptive a aphasia Psych/Mental Status: Normal Affect Vital Signs Temp Pulse Resp BP Pulse Ox 36.7 C 75 16 147/92 H 95 07/28/18 07:07 07/28/18 07:07 07/28/18 07:07 07/28/18 07:07 07/28/18 07:07 Oxygen Delivery Method Room Air Weight: 69.2 kg Body Mass Index (BMI) 24.7 Intake and Output for Last 24 Hours 07/26/18 07/27/18 07/28/18 23:59 23:59 23:59 Intake Total 680 / 680 480 / 480 Balance 680 / 680 480 / 480 Discharge Diet: No Restrictions Discharge Activity: Return to Normal Activity, May Not Drive Weight Bearing Status: Weight bearing as tolerated Lifting Restrict to (lbs):: 10 Home Medications: Medications to take at Discharge Acetaminophen [Tylenol] 650 mg PO Q8 PRN 07/16/18 Aspirin 81 mg PO DAILY 07/16/18 Calcium Carbonate/Vitamin D3 [Calcium 500 mg Chewable Tablet] 1 each PO BID 07/16/18 [place]-3 Fatty Acids/Fish Oil [Fish Oil 1,000 mg Capsule] 1 each PO DAILY 07/16/18 Atorvastatin Calcium [Lipitor] 80 mg PO QHS #30 tab 07/28/18 Bisacodyl [Dulcolax] 10 mg RECTAL .PRN X 1 PRN suppos. 07/28/18 Ensure Enlive 120 ml PO 4X/DAY liquid 07/28/18 Escitalopram Oxalate [Lexapro] 10 mg PO DAILY #30 tab 07/28/18 Famotidine [Pepcid] 20 mg PO BID #60 tab 07/28/18 Lisinopril 5 mg PO DAILY #30 tab 07/28/18 Senna/Docusate Sodium [Senokot-S] 2 tablet PO DAILY tablet 07/28/18 Following Prescrptions Were Given to Patient: Atorvastatin Calcium [Lipitor] 80 mg PO QHS #30 tab Escitalopram Oxalate [Lexapro] 10 mg PO DAILY #30 tab Lisinopril 5 mg PO DAILY #30 tab Famotidine [Pepcid] 20 mg PO BID #60 tab Primary Care Physician: Michelle Upton NP-C [Primary Care Provider] - Please Follow Up With: Anali neurology When: Call for an appointment Disposition: Home Minutes spent on discharge:: 40 Patient Condition:: Good Rehab Course The patient is a 68 year old M with PMH HTN, admitted to [facility] on 07/16/18 with debility s/p acute left MCA stroke and aphasia, for > 3 hrs therapy with a goal of returning back home at or near his prior level of functional independence. Patient transferred from [facility]. Per documentation he was admitted to [facility] with right sided weakness and speech disturbances, NIHSS was 11 on admission, MRI brain reported to show large Left MCA infarct, CTA head/neck not reported to show any hemodynamically significant stenosis or occlusion but showed old left transverse and sigmoid sinus possible thrombosis, ARLENE reported to show small PFO, Hba1c was 4.9, LDL was 116, hypercoagulable panel was reported negative, per documentation Neurosurgery was consulted given the large size of the stroke but was managed conservatively. At present patient continues to have expressive aphasia, denies any DOMINGUEZ, dizziness, visual disturbances. Per documentation patient lives with family, does not use cane or walker to ambulate, has 3 steps to go into the house, denies any falls. In the rehab unit his hospital course was uneventful. He improved from all measures, and was deemed appropriate for discharge to home with outpatient follow-up. Meaningful Use Info Meaningful Use Diagnoses (Choose all that apply): None applicable
--- NOTE | 2018-07-28 13:34 | CASEMGMT ---
Social Work Team meeting held today with pt present. Pt is progressing well with PT/OT/ST. D/C date set for tomorrow 07/29/[address] is recommended. Pt is agreeable to return home with his spouse and outpt ST. With pt permission, phone call to pt spouse Blanca. Update provided on team meeting and discharge recommendations. Pt is agreeable to ST at [facility] and she can transport to appointments and she is agreeable to pt returning home tomorrow. Pt will transport pt home around 3pm. Phone call to [facility] and referral made for Speech therapy. Will fax order and [facility] will call to set up appointment. No further SW needs. Plan: D/C home with and outpt Speech Therapy GEOVANNA Carrington
[2018-07-28 13:49] VITALS: BMI 24.7
[2018-07-28 22:00] VITALS: BP 141/84; PULSE 73; RESP 16; TEMP 36.6; O2SAT 97
[2018-07-28] MEDS: Atorvastatin Calcium 80 MG Tablet PO (22:59)
--- NOTE | 2018-07-29 03:49 | NURSING ---
REVIEWED AND AGREE WITH CRITICAL CARE NURSE'S FIM AND HANDOFF CHARTING.
[2018-07-29] MEDS: Calcium Carb/Vitamin D 1 TABLET Tablet PO (08:07)
[2018-07-29] MEDS: Aspirin 81 MG TAB.CHEW PO (08:07)
[2018-07-29] MEDS: Famotidine 20 MG Tablet PO (08:07)
[2018-07-29] MEDS: Lisinopril 5 MG Tablet PO (08:08)
[2018-07-29] MEDS: Escitalopram Oxalate 10 MG Tablet PO (08:08)
[2018-07-29] MEDS: Senna/Docusate Sodium 1 Tablet 2 TABLET PO (08:09)
[2018-07-29 10:00] VITALS: BP 110/68; PULSE 78; RESP 17; TEMP 36.7; O2SAT 96
--- NOTE | 2018-07-29 13:06 | CASEMGMT ---
SW attempted to complete PHQ-9 with patient as he had a Stroke. However, patient was having a difficult time communicating his answers. Therefore, SW did not complete PHQ-9 with patient. SW did leave a list of resources for counseling for patient. Shelli ENRIQUEZ MSW
[2018-07-29 13:53] VITALS: BMI 24.7
[2018-07-29 16:30] VITALS: BP 110/68; PULSE 78; RESP 17; TEMP 36.7; O2SAT 96
--- NOTE | 2018-07-29 16:33 | NURSING ---
Patient and family verbalized understanding to discharge instructions provided.
== END 2018-07-29 16:34 | disposition home or self-care (01) | DRG 57 ==
PROVIDERS: Admitting Provider Psychiatry & Neurology Neurology; Family Provider Nurse Practitioner Adult Health; PCP Nurse Practitioner Adult Health; Referring Provider Psychiatry & Neurology Neurology
DX: I69.351 Hemiplegia and hemiparesis following cerebral infarction affecting right dominant side (principal); Q21.1 Atrial septal defect; I69.322 Dysarthria following cerebral infarction; I69.320 Aphasia following cerebral infarction; I10 Essential (primary) hypertension; I69.391 Dysphagia following cerebral infarction; R13.10 Dysphagia, unspecified
CPT/HCPCS: 36415; 80053; 85025; 92507; 92523; 92526; 92610; 97110; 97112; 97116; 97127; 97162; 97166; 97530; 97535; 97802; G0515

== ENCOUNTER 2019-02-07 13:00 | Outpatient (RCR) | payer MEDICARE, SELFPAY ==
--- NOTE | 2018-08-16 14:18 | HP.SP.AD_ITS ---
History - History Date of Eval: 08/15/18 Medical Diagnosis (from RX): CVA Date of Onset of Diagnosis: 07-13-18 Previous speech therapy: Yes Results: During inpatient rehab. Other Relevant Medical History/Diagnoses/Surgery: Debility (Acute). Acute ischemic left MCA stroke (Acute). Aphasia (Acute). HTN (hypertension) (Chronic) Medications related to this diagnosis: Acetaminophen [Tylenol] 650 mg PO Q8 PRN 07/16/18. Aspirin 81 mg PO DAILY 07/16/18. Calcium Carbonate/Vitamin D3 [Calcium 500 mg Chewable Tablet] 1 each PO BID 07/16/18. [place]-3 Fatty Acids/Fish Oil [Fish Oil 1,000 mg Capsule] 1 each PO DAILY 07/16/18. Atorvastatin Calcium [Lipitor] 80 mg PO QHS #30 tab 07/28/18. Bisacodyl [Dulcolax] 10 mg RECTAL .PRN X 1 PRN suppos. 07/28/18. Ensure Enlive 120 ml PO 4X/DAY liquid 07/28/18. Escitalopram Oxalate [Lexapro] 10 mg PO DAILY #30 tab 07/28/18. Famotidine [Pepcid] 20 mg PO BID #60 tab 07/28/18. Lisinopril 5 mg PO DAILY #30 tab 07/28/18. 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 Linguistic skills were evaluated using patient/family interview, skilled observation and informal evaluation through tasks completed by the patient. - Identification Body parts/objects: WNL Colors: WNL Letters: Moderate Numbers: WNL - Answer Yes/No Questions Simple: WNL Complex: Severe - Follows Commands 1 Step: Moderate Complex: Severe - Comments Comments: Patient needed repetition for all directions. - Automatic Sequences Automatic Sequences: Mild - Repetition Words: Mild - Naming Responsive naming: Moderate Naming in categories: Severe - Conversational Tasks Conversational Tasks: Severe Comments: He was able to understand simple conversation but often appeared confused by lengthy sentences or converation. - Comments Comments: Overall, he presents with significant receptive language deficits chracterized by decreased ability to answer yes/no questions, follow directions, and partcipate in conversation.Patient was not able to give his name or any i nformation. He was able to identify it in a field of 3. - Reading Picture-Word Matching Picture-Word matching: [facility] - Reading Comprehension Words: Severe Phrases: Severe Sentences: Severe - Oral Reading Words: Severe Phrases: Severe - Writing Functional writing correctly: Name Words: Moderate Comments: Patient was able to spell his first and last name but not able to sign his name. He was not able to write any other information functionally. He had spelling errors when attempting to write and often was unable to write any part of the word. 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 - Recommendations Treatment Warranted: Yes - Frequency Frequency: 2x /Week Duration: 2 Months Visits in this POC: 8 - Prognosis Prognosis: Good - Goals that are Established: Determination:: Goals will be added/modified as deemed necessary and appropriate. Therapy will be discontinued when results of re-evaluation indicate therapy is no longer needed or lack of progress has been documented. - Goal #1-5 Goal #1: Dewayne will complete naming tasks including but not limited to responsive naming, answering questions about objects and phrase completion with 90% accuracy. Goal #2: Dewayne will give basic information about himself such as name, family members names, birthday with 80% accuracy through imitation and/or verbal productions. Goal #3: Dewayne will answer yes/no questions with 80% accuracy. Goal #4: Dewayne will follow one and two step directions on 4/5 trials on 4 consecutive sessions. Education - Patient has Indicated that the Following Identified Educational Needs: Inability to Read/Write, Cognitively Impaired - Patient Instruction Patient Education: Diagnosis, Treatment Plan Person Taught: Family Teaching Method: Discussion Response to teaching: Verbalize understanding
--- NOTE | 2018-09-27 09:08 | HP.SP.ADRE ---
Previous/Current Goals - Goals 1-5 Previous Goal #1: Dewayne will complete naming tasks including but not limited to responsive naming, answering questions about objects and phrase completion with 90% accuracy. Goal 1 Status: Initiall, Dewayne completed common sentences and phrases with 70% accuracy. Currently: Answering questions via object use via single words: 42%, independently labelin% with extra wait time and another 25% with phonemic cuing. Previous Goal #2: Dewayne will give basic information about himself such as name, family members names, birthday with 80% accuracy through imitation and/or verbal productions. Goal 2 Status: He was able to say his first name and then read first and last name. He was able to pick out his kids names from a choice of three and then repeat them. Currently: He can say his first and last name (with errors due to apraxic characteristics) and ?s name as well as independently named 5/7 kids. Previous Goal #3: Dewayne will answer yes/no questions with 80% accuracy. Goal 3 Status: Previously: Short questions: 94% object questions : 100%. Currently: general 100%, 2 item comparison 100% before/after questions 76% Goal continues. Previous Goal #4: Dewayne will follow one and two step directions on 4/5 trials on 4 consecutive sessions. Goal 4 Status: Initially: 1-step verbal directions with 75% accuracy. Pt followed 2-step directions with 60% accuracy. Currently: 1 step 100% 2 step: Ranges from 50% to 87% History - History Date of Eval: 08/15/18 Medical Diagnosis (from RX): CVA Date of Onset of Diagnosis: 07-13-18 Previous speech therapy: Yes Results: During inpatient rehab. Other Relevant Medical History/Diagnoses/Surgery: Debility (Acute). Acute ischemic left MCA stroke (Acute). Aphasia (Acute). HTN (hypertension) (Chronic) Medications related to this diagnosis: Acetaminophen [Tylenol] 650 mg PO Q8 PRN 07/16/18. Aspirin 81 mg PO DAILY 07/16/18. Calcium Carbonate/Vitamin D3 [Calcium 500 mg Chewable Tablet] 1 each PO BID 07/16/18. [place]-3 Fatty Acids/Fish Oil [Fish Oil 1,000 mg Capsule] 1 each PO DAILY 07/16/18. Atorvastatin Calcium [Lipitor] 80 mg PO QHS #30 tab 07/28/18. Bisacodyl [Dulcolax] 10 mg RECTAL .PRN X 1 PRN suppos. 07/28/18. Ensure Enlive 120 ml PO 4X/DAY liquid 07/28/18. Escitalopram Oxalate [Lexapro] 10 mg PO DAILY #30 tab 07/28/18. Famotidine [Pepcid] 20 mg PO BID #60 tab 07/28/18. Lisinopril 5 mg PO DAILY #30 tab 07/28/18. 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 Linguistic skills were evaluated using patient/family interview, skilled observation and informal evaluation through tasks completed by the patient. - Identification Body parts/objects: WNL Colors: WNL Letters: Moderate Numbers: WNL - Answer Yes/No Questions Simple: WNL Complex: Severe - Follows Commands 1 Step: Moderate Complex: Severe - Comments Comments: Patient needed repetition for all directions. - Automatic Sequences Automatic Sequences: Mild - Repetition Words: Mild - Naming Responsive naming: Moderate Naming in categories: Severe - Conversational Tasks Conversational Tasks: Severe Comments: He was able to understand simple conversation but often appeared confused by lengthy sentences or converation. - Comments Comments: Overall, he presents with significant receptive language deficits chracterized by decreased ability to answer yes/no questions, follow directions, and partcipate in conversation.Patient was not able to give his name or any information. He was able to identify it in a field of 3. - Reading Picture-Word Matching Picture-Word matching: WFL - Reading Comprehension Words: Severe Phrases: Severe Sentences: Severe - Oral Reading Words: Severe Phrases: Severe - Writing Functional writing correctly: Name Words: Moderate Comments: Patient was able to spell his first and last name but not able to sign his name. He was not able to write any other information functionally. He had spelling errors when attempting to write and often was unable to write any part of the word. 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 Cognitive Linguistic Comments - Comments Communication Dewayne has make progress towards goals but he continues to exhibit severe deficits. His overall communication is through single words/phrases, writing and gesturing. He is unable to effectively communicate wants and needs along with medical information. All goals are continuing. He exhbits signs of apraxia as well. Plan - Plan Plan: Speech therapy continues to be warranted for severe expressive aphasia and moderate receptive aphasia. - Recommendations Treatment Warranted: Yes - Frequency Frequency: 2x /Week Duration: 5 weeks Visits in this POC: 10 - Prognosis Prognosis: Good - Goals that are Established: Determination:: Goals will be added/modified as deemed necessary and appropriate. Therapy will be discontinued when results of re-evaluation indicate therapy is no longer needed or lack of progress has been documented. - Goal #1-5 Goal #1: Dewayne will complete naming tasks including but not limited to responsive naming, answering questions about objects and phrase completion with 90% accuracy. Goal #2: Dewayne will give basic information about himself such as name, family members names, birthday with 80% accuracy through imitation and/or verbal productions. Goal #3: Dewayne will answer yes/no questions with 80% accuracy. Goal #4: Dewayne will follow two step directions on 4/5 trials on 4 consecutive sessions.
--- NOTE | 2018-12-05 10:57 | HP.SP.ADRE ---
Previous/Current Goals - Goals 1-5 Previous Goal #1: Dewayne will complete naming tasks including but not limited to responsive naming, answering questions about objects and phrase completion with 90% accuracy. Goal 1 Status: Dewayne continues to have significant deficits in naming and anomia. He can communicate in phrases but not typically full sentences. Vnest (subject, action, object): he was able to do this x8 with extra time needed. Responsive namin% with extra time with maximal cues. Intermittently he needed phrase completion ( you cut with___? ) Previous Goal #2: Dewayne will give basic information about himself such as name, family members names, birthday with 80% accuracy through imitation and/or verbal productions. Goal 2 Status: Dewayne was able to say his first and last name ( last name had slight error), birthdate was difficult as was his age. He was able to say 6/7 kids names when given extra time. Previous Goal #3: Dewayne will answer yes/no questions with 80% accuracy. Goal 3 Status: Previously: general 100%, 2 item comparison 100% before/after questions 76%. Currently: 90% for complex yes/no including comparisons and before/after questions. Goal met. Previous Goal #4: Dewayne will follow two step directions on 4/5 trials on 4 consecutive sessions. Goal 4 Status: Previously: 1 step 100% 2 step: Ranges from 50% to 87%. Currently: 2 step directions: 75% independently and with one repetition he was able to correct to 90% History - History Date of Eval: 08/15/18 Medical Diagnosis (from RX): CVA Date of Onset of Diagnosis: 07-13-18 Previous speech therapy: Yes Results: During inpatient rehab. Other Relevant Medical History/Diagnoses/Surgery: Debility (Acute). Acute ischemic left MCA stroke (Acute). Aphasia (Acute). HTN (hypertension) (Chronic) Medications related to this diagnosis: Acetaminophen [Tylenol] 650 mg PO Q8 PRN 07/16/18. Aspirin 81 mg PO DAILY 07/16/18. Calcium Carbonate/Vitamin D3 [Calcium 500 mg Chewable Tablet] 1 each PO BID 07/16/18. [place]-3 Fatty Acids/Fish Oil [Fish Oil 1,000 mg Capsule] 1 each PO DAILY 07/16/18. Atorvastatin Calcium [Lipitor] 80 mg PO QHS #30 tab 07/28/18. Bisacodyl [Dulcolax] 10 mg RECTAL .PRN X 1 PRN suppos. 07/28/18. Ensure Enlive 120 ml PO 4X/DAY liquid 07/28/18. Escitalopram Oxalate [Lexapro] 10 mg PO DAILY #30 tab 07/28/18. Famotidine [Pepcid] 20 mg PO BID #60 tab 07/28/18. Lisinopril 5 mg PO DAILY #30 tab 07/28/18. 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 Linguistic skills were evaluated using patient/family interview, skilled observation and informal evaluation through tasks completed by the patient. - Orientation Orientation: Person, Place, Date, Day, Birthdate, Medical Diagnosis - Identification Body parts/objects: WNL Colors: WNL Letters: WNL - Answer Yes/No Questions Simple: WNL Complex: WNL - Follows Commands 1 Step: WNL 2 Step: WNL Complex: WFL - Comments Comments: Intermittently directions need repeated. - Automatic Sequences Automatic Sequences: WFL - Repetition Words: Mild Sentences: Severe - Naming Responsive naming: Severe Naming in categories: Severe [place]: Severe Abstract: Severe - Conversational Tasks Conversational Tasks: Severe Comments: Dewayne uses a combination of gesturing, writing and verbal communication to communicate. Majority of communication relies on the listener to interpret communication attempts. He needs increased time to attempt to express himself verbally. His verbal commmunication is poor as he demonstrate severe anomia - Comments Comments: Overall, he presents with significant receptive language deficits chracterized by decreased ability to answer yes/no questions, follow directions, and partcipate in conversation.Patient was not able to give his name or any information. He was able to identify it in a field of 3. - Reading Picture-Word Matching Picture-Word matching: Mild - Reading Comprehension Words: Mild Sentences: Moderate - Oral Reading Words: Severe Phrases: Severe - Writing Functional writing correctly: Name Words: WNL - Numerical Skills Telling Time: Dewayne needed repeition and prompts to complete time questions. He often needed a visual cue when information was provided verbally. This is a goal that the patient requested to address. 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 Cognitive Linguistic Comments - Comments Communication Dewayne has make progress towards goals but he continues to exhibit severe deficits. His overall communication is through single words/phrases, writing and gesturing. He is unable to effectively communicate wants and needs along with medical information. All goals are continuing. He exhbits signs of apraxia as well. Plan - Plan Plan: Speech therapy is recommended to continue for significant expressive language deficits and mild receptive language deficits. - Recommendations Treatment Warranted: Yes - Frequency Frequency: 1x/Week Visits in this POC: 10 - Prognosis Prognosis: Good - Goals that are Established: Determination:: Goals will be added/modified as deemed necessary and appropriate. Therapy will be discontinued when results of re-evaluation indicate therapy is no longer needed or lack of progress has been documented. - Goal #1-5 Goal #1: Dewayne will communicate wants and needs on 4/5 trials with 4-5 word combinations. Goal #2: Dewayne will demonstate an understanding of written material with at least one sentence up to 4 sentences with 80% accuracy. Goal #3: Dewayne will demonstrate an understanding of numerical values for time with 80% accuracy.
--- NOTE | 2018-12-22 15:07 | HP.OTEVAL_ITS ---
Patient's Visit Information WANDA RAMIREZ is a 68 year old M, referred to Occupational Therapy by Konrad Solis MD, with a diagnosis of CVA. Date of Evaluation: 12/21/18 Occupational Therapist: MARIE Medina/Vin, CHT - Subjective Subjective: This 68 year old male was seen for OT eval with dx of CVA. pt states on July 13, 2018 was his stroke. Pt demo expressive aphasia and dtr speaks for him. they explain right UE does not feel hot or cold, difficulty to tell where arm is in space or will not be able to hold objects due to dropping items. pt would like to improve his functional use of his right UE for ADLS and IADLS. - ADLs Bathing: Handle washcloth & soap Household: Vacuum, Sweep/mop, Laundry Yard: Mow lawn, [place], [place], Use shovel, Use pruners Miscellaneous: Open medication bottle, Handle money (change), Hold change, Use hand tools - ROM ROM Comments: pt demo BUE ROM WFL- right UE has right shoulder abduction dirft - Strength Shoulder: right 4-/5 left 5/5 Design Engineering Intern: right 65# left 75# Lateral Pinch: right 18# left 16# Tripod Pinch: right 20# left 18# Strength Comments: pt demo right UE weakness limiting ADLS and IADLs at this time. - Sensation Stereognosis: Normal - Right, Abnormal - Right, Normal - Left Kinesthesia: Abnormal - Right, Normal - Left Proprioception: Abnormal - Right, Normal - Left Sensation Comments: pt unable to tell hot from cold. - Movement Ataxia: right UE - In-Hand Manipulation Finger to Palm Translation: Mild - Right, Normal - Left Palm to Finger Translation: Mild - Right, Normal - Left Shift: Moderate - Right, Normal - Left - Quick DASH-Disab of Arm,Shoulder& Hand Quick DASH Score: 45.4525 - Goals Goal:: Pt will demo the ability to manupulate fasteners, zippers, buttons at IND. level by d/c. pt will demo the ability to use right UE with good ability for simulated home mtg and work tasks that require BUE use by d/c. pt will demo the ability to hold object of 1# or more for greater than 2 min with vision occluded to simulate home mtg tasks without dropping objects by d/c. Goal:: pt will demo the ability to tell differance of hot/cold sensation in hand/digits to decrease risk of injury by D/C. - Rehabilitation General Assessment: Right UE limitations with sensation/properioception and weakness of right UE. Pt would benefit from skilled OT services 1-2x week for 4 weeks to challenge pts functional use of right UE for ADLs and IADLs to return pt to [facility]. Pt and family demo understanding of tx plan and agreed. Rehabilitation Potential: Good - Anticipated Interventions Anticipated Interventions: Strengthening, Sensory Retraining, Fine Motor Coord/Luis E, Neuro Reeducation, Sensory Stimulation, Caregiver Training, Home Program - Visit Plan Frequency: 1x/Week Duration: 4 Weeks TEXT: Thank you for the opportunity to evaluate your patient. For Medicare and Medicare HMO plans, please review the plan of care and approve it. It will need to be FAXED BACK to us at [phone] for Medicare purposes. Please let me know if there are questions or concerns regarding this plan of care. Physician Signature: Date:
== END 2019-02-07 19:00 | disposition home or self-care (01) ==
LOC: SP 13:00
PROVIDERS: Family Provider Nurse Practitioner Adult Health; PCP Nurse Practitioner Adult Health; Referring Provider Psychiatry & Neurology Neurology; Visit Provider Psychiatry & Neurology Neurology
DX: I69.928 Other speech and language deficits following unspecified cerebrovascular disease (principal)
CPT/HCPCS: 92507; 92523; 97110; 97112; 97166; 97530

== ENCOUNTER 2019-07-18 13:00 | Outpatient (RCR) | payer MEDICARE, MEDICAID, SELFPAY ==
--- NOTE | 2019-03-03 14:32 | HP.SP.ADRE ---
Previous/Current Goals - Goals 1-5 Previous Goal #1: Dewayne will communicate wants and needs on 4/5 trials with 4-5 word combinations. Goal 1 Status: Initially: 20% of utterances are at least 4 words. He interjects lots of fillers and continues to gesture often. Currently, dewayne ranges from 20% to 30% with maximal cues. His language remains vague often with use of words like that, there, you know. Previous Goal #2: Dewayne will demonstate an understanding of written material with at least one sentence up to 4 sentences with 80% accuracy. Goal 2 Status: Previously: Two sentence paragraphs with yes/no questions 100%. Currently: Dewayne is able to read charts with up to 10 lines as well as paragraphs of 3-4 sentences and answer questions about material read with 90% accuracy. [ End ] Previous Goal #3: Dewayne will demonstrate an understanding of numerical values for time with 80% accuracy. Goal 3 Status: Dewayne initially had difficulty with time concepts such as knowing how long it would take for an event, or how to tell how much time to get ready. Currently he is able to answer all time questions. He can write answers much better than express verbally due to significant expressive aphasia. History - History Date of Eval: 08/16/18 Medical Diagnosis (from RX): CVA Previous speech therapy: No Smoking Status: Never smoker Hx Smoking: No Hx Tobacco Use: No - Pain Is pain an issue with your current prescribed condition?: No Patient Allergies - Allergies Allergies No Known Allergies Allergy (Verified 07/16/18 18:24) Objective Cog/Ling/Com - Test Administered Eaixasnnx-Nyniirvxqs-Femkllgnwlxyh Assessment Administered: Yes Vkelncviw-Jaiwlksxvo-Atxsyfoxdndqb Assessment: Cognitive ? Linguistic skills were evaluated using patient/family interview, skilled observation and informal evaluation through tasks completed by the patient. - Orientation Orientation: Person, Place, Date, Day, Medical Diagnosis - Answer Yes/No Questions Simple: WNL Complex: WNL - Follows Commands 1 Step: WNL 2 Step: WNL Complex: WNL - Automatic Sequences Automatic Sequences: WFL - Repetition Words: Mild Sentences: Moderate - Naming Responsive naming: Severe Naming in categories: Severe - Conversational Tasks Conversational Tasks: Severe Comments: Dewayne continues to have severe language deficits. His communication heavily relies on his listener. He lacks content words verbally but often is able to communicate through writing. - Reading Picture-Word Matching Picture-Word matching: WNL - Reading Comprehension Words: WFL Phrases: WFL Sentences: WFL - Oral Reading Words: Severe Phrases: Severe Sentences: Severe Other Impressions - Comments AAC -: AAC has been discussed with Dewayne. At this time he has declined a device for communication. He does suppliment his verbal speech by writing single words. Plan - Plan Plan: Speech therapy is to continue for total communication strategies so Dewayne can effectively communciate to all listeners. - Recommendations Treatment Warranted: Yes - Frequency Frequency: 1x/Week Duration: 2 Months Visits in this POC: 8 - Prognosis Prognosis: Fair - Goals that are Established: Determination:: Goals will be added/modified as deemed necessary and appropriate. Therapy will be discontinued when results of re-evaluation indicate therapy is no longer needed or lack of progress has been documented. - Goal #1-5 Goal #1: Dewayne will communicate wants and needs on 4/5 trials utilizing verbal productions, written communications and gestures. Goal #2: Dewayne will demonstate an understanding of written material with at least 4 sentence up to 10 sentences with 80% accuracy. Goal #3: .
--- NOTE | 2019-05-17 12:28 | HP.SP.ADRE ---
Previous/Current Goals - Goals 1-5 Previous Goal #1: Dewayne will communicate wants and needs on 4/5 trials with 4-5 word combinations. Goal 1 Status: Initially: 20% of utterances are at least 4 words. He interjects lots of fillers and continues to gesture often. Currently, dewayne ranges from 20% to 30% with maximal cues. His language remains vague often with use of words like that, there, you know. Previous Goal #2: Dewayne will demonstate an understanding of written material with at least one sentence up to 4 sentences with 80% accuracy. Goal 2 Status: Previously: Two sentence paragraphs with yes/no questions 100%. Currently: Dewayne is able to read charts with up to 10 lines as well as paragraphs of 3-4 sentences and answer questions about material read with 90% accuracy. [ End ] Previous Goal #3: Dewayne will demonstrate an understanding of numerical values for time with 80% accuracy. Goal 3 Status: Dewayne initially had difficulty with time concepts such as knowing how long it would take for an event, or how to tell how much time to get ready. Currently he is able to answer all time questions. He can write answers much better than express verbally due to significant expressive aphasia. History - History Date of Eval: 08/16/18 Medical Diagnosis (from RX): CVA Previous speech therapy: No Other Relevant Medical History/Diagnoses/Surgery: Patient had a seizure in april 2019 with a set back to language skills. Smoking Status: Never smoker Hx Smoking: No Hx Tobacco Use: No - Pain Is pain an issue with your current prescribed condition?: No Patient Allergies - Allergies Allergies No Known Allergies Allergy (Verified 07/16/18 18:24) Objective Cog/Ling/Com - Test Administered Ribfuekug-Bokgydttcs-Fzoyirkykmjiw Assessment Administered: Yes Geeygqxds-Fyjniiqpze-Owbpdxrahraga Assessment: Cognitive ? Linguistic skills were evaluated using patient/family interview, skilled observation and informal evaluation through tasks completed by the patient. - Orientation Orientation: Person, Place, Date, Day, Medical Diagnosis - Answer Yes/No Questions Simple: WNL Complex: WNL - Follows Commands 1 Step: WNL 2 Step: WNL Complex: WNL - Automatic Sequences Automatic Sequences: WFL - Repetition Words: Mild Sentences: Moderate - Naming Responsive naming: Severe Naming in categories: Severe - Conversational Tasks Conversational Tasks: Severe Comments: Dewayne continues to have severe language deficits. His communication heavily relies on his listener. He lacks content words verbally but often is able to communicate through writing. - Reading Picture-Word Matching Picture-Word matching: WNL - Reading Comprehension Words: WFL Phrases: WFL Sentences: WFL - Oral Reading Words: Severe Phrases: Severe Sentences: Severe - Writing Words: WFL Comments: Dewayne can write single words to communciate if verbal productions are diffficult. Other Impressions - Comments AAC -: AAC has been discussed with Dewayne. At this time he has declined a device for communication. He does suppliment his verbal speech by writing single words. Plan - Plan Plan: Speech therapy is to continue for total communication strategies so Dewayne can effectively communciate to all listeners. - Recommendations Treatment Warranted: Yes - Frequency Visits in this POC: 8 - Prognosis Prognosis: Fair - Goals that are Established: Determination:: Goals will be added/modified as deemed necessary and appropriate. Therapy will be discontinued when results of re-evaluation indicate therapy is no longer needed or lack of progress has been documented. - Goal #1-5 Goal #1: Dewayne will communicate wants and needs on 4/5 trials utilizing verbal productions, written communications and gestures. Goal #2: Dewayne will demonstate an understanding of written material with at least 4 sentence up to 10 sentences with 80% accuracy. Goal #3: .
--- NOTE | 2019-07-18 15:19 | HP.SP.DC ---
ST Discharge Summary - Discharged: Discharge: Dewayne Lewis is discharged from [facility] as of July 18, 2019. His initial evaluation was on August 16 2018 for aphasia following his CVA. He has attended therapy consistently during that time. Initially, he exhibited a much more severe receptive and expressive aphasia. He was unable to answer questions, either wh or yes/no. He had difficulty with reading comprehension and expressive language. He made good progress and at the time of discharge did not demonstrate receptive language deficits. He was able to read pages of text and answer questions both yes/no and wh. He often had to write answers or use gestures as his expressive aphasia did not progress in the same manner. At the time of discharge, he used a combination of verbal expression as well as written information to communicate. The patient was able to communicate 60% of the time with an unfamiliar listener and 80% to a familiar listener using a total language approach. The patient has reached a plateau and is in agreement with discharge. A copy of this discharge summary will be sent to his referring physician.
== END 2019-07-18 19:00 | disposition home or self-care (01) ==
LOC: SP 13:00
PROVIDERS: Family Provider Nurse Practitioner Adult Health; PCP Nurse Practitioner Adult Health; Referring Provider Nurse Practitioner Adult Health; Visit Provider Nurse Practitioner Adult Health
DX: I69.928 Other speech and language deficits following unspecified cerebrovascular disease (principal)
CPT/HCPCS: 92507